=== PATIENT | female | born 1970 | race Caucasian/White ===

== ENCOUNTER 2017-01-29 07:57 | Day surgery (SDC) | payer OTHER ==
[~2017-01-29] VITALS: Ht 167.6 cm; Wt 102.1 kg
[~2017-01-29 07:57] MED LIST: BEYAZ 28 TABLE1 EACH; CLONAZEPAM1 MG PO; MOTRIN800 MG PO; NORCO 7.5/321 TABLET PO; PERCOCET 5/31 TABLET PO; REQUIP1 MG PO; ROSERUM PO; ULTRAM50 MG PO
[2017-01-29 08:29] VITALS: BP 118/62
[2017-01-29 11:30] VITALS: BP 140/78
[2017-01-29 12:15] VITALS: BP 125/65
== END 2017-01-29 12:25 | disposition home or self-care (01) ==
LOC: SDC 07:57
PROC: 0U5B8ZZ Destruction of Endometrium, Via Natural or Artificial Opening Endoscopic (ICD-10-PCS; principal; 2017-01-29)
DX: N92.0 Excessive and frequent menstruation with regular cycle (principal); E66.9 Obesity, unspecified; Z68.37 Body mass index [BMI] 37.0-37.9, adult; Z87.891 Personal history of nicotine dependence
CPT/HCPCS: J1100; J1170; J1885; J2250; J2405; J2765; J3010

== ENCOUNTER 2017-06-14 10:21 | Emergency (ER) | payer OTHER ==
[~2017-06-14] VITALS: Ht 167.6 cm; Wt 103.7 kg
[2017-06-14 11:04] VITALS: BP 138/73
[2017-06-14 13:45] LABS: HEMATOCRIT 39.2 % (36.0-46.0); MCH 28.2 PG (29.0-34.0); MCHC 32.1 G/DL (30.0-36.0); MCV 87.7 FL (83-99); MEAN PLAT.VOLUME 9.5 uM^3 (9.5-12.4); PLATELET COUNT 233 K/uL (156-360); RBC DIS.WIDTH-CV 13.6 % (11.8-14.6); RBC DIS.WIDTH-SD 43.8 % (39-53); RED BLOOD COUNT 4.47 M/uL (3.80-5.20); WHITE BLOOD COUNT 8.4 K/uL (4.1-10.2)
[2017-06-14 13:55] LABS: CHLORIDE 106 mEq/L (99-109); POTASSIUM 3.9 mEq/L (3.7-5.4); SODIUM 138 mEq/L (136-147)
[2017-06-14 13:56] LABS: GLUCOSE 114 mg/dL (70-99)
[2017-06-14 13:58] LABS: ANION GAP 10 MEQ/L (2-14)
[2017-06-14 14:00] LABS: GFR ESTIMATE (CALCULATED) > 59 mL/min/
[2017-06-14] MEDS ORDERED: LEVAQUIN750 MG PO (14:00)
[2017-06-14] MEDS ORDERED: VENTOLIN HFA18 GM IH (14:00)
[2017-06-14] MEDS ORDERED: HYCODAN SYRUP480 ML PO (14:00)
[2017-06-14 14:01] LABS: UREA NITROGEN (BUN) 10 mg/dL (9-23)
== END 2017-06-14 14:21 | disposition home or self-care (01) ==
LOC: EME 10:21 → EXP 10:21
PROVIDERS: Nurse Practitioner Family
DX: J18.9 Pneumonia, unspecified organism (principal); Z87.891 Personal history of nicotine dependence; Z88.0 Allergy status to penicillin
CPT/HCPCS: 80048; 85027; 94640; 99281; 99284

== ENCOUNTER 2017-07-11 10:23 | Inpatient (IN) | payer OTHER ==
[~2017-07-11] VITALS: Ht 167.6 cm; Wt 110.0 kg
[~2017-07-11 10:23] MED LIST changes: +HYCODAN SYRUP480 ML PO; +LEVAQUIN750 MG PO; +VENTOLIN HFA18 GM IH
[2017-07-11 12:35] LABS: BASOPHIL COUNT 0.1 K/uL (0-0.1); EOSINOPHIL (%) 0.1 % (0-5); HEMATOCRIT 37.8 % (36.0-46.0); IMMATURE GRANULOCYTE (%) 0.6 % (0.0-0.7); IMMATURE GRANULOCYTE COUNT 0.1 K/uL; INSTRUMENT ABS NEUTROPHIL CT 11.5 K/uL; LYMPHOCYTE COUNT 1.6 K/uL (1.0-2.8); MCH 28.3 PG (29.0-34.0); MCHC 32.3 G/DL (30.0-36.0); MCV 87.7 FL (83-99); MEAN PLAT.VOLUME 9.6 uM^3 (9.5-12.4); MONOCYTE (%) 6.6 % (3-12); MONOCYTE COUNT 0.9 K/uL (0-0.8); NEUTROPHIL (%) 81.1 % (45-76); NEUTROPHIL COUNT 11.5 K/uL (1.8-6.4); RBC DIS.WIDTH-CV 13.2 % (11.8-14.6); RBC DIS.WIDTH-SD 42.6 % (39-53); RED BLOOD COUNT 4.31 M/uL (3.80-5.20); WHITE BLOOD COUNT 14.1 K/uL (4.1-10.2)
[2017-07-11 12:37] LABS: PROTHROMBIN TIME 10.6 SEC (10.2-12.9)
[2017-07-11 12:38] LABS: PLATELET COUNT 335 K/uL (156-360)
[2017-07-11 12:39] LABS: CHLORIDE 106 mEq/L (99-109); POTASSIUM 3.4 mEq/L (3.7-5.4); SODIUM 140 mEq/L (136-147)
[2017-07-11 12:41] LABS: GLUCOSE 106 mg/dL (70-99)
[2017-07-11 12:43] LABS: ANION GAP 11 MEQ/L (2-14)
[2017-07-11 12:45] LABS: GFR ESTIMATE (CALCULATED) > 59 mL/min/
[2017-07-11 12:46] LABS: UREA NITROGEN (BUN) 13 mg/dL (9-23)
[2017-07-11] MEDS ORDERED: PRILOSEC20 MG PO (13:44)
[2017-07-11] MEDS ORDERED: REQUIP1 MG PO (13:44)
[2017-07-11 22:54] VITALS: BP 139/67
[2017-07-12 03:54] VITALS: BP 114/56
[2017-07-12 08:05] VITALS: BP 119/51
[2017-07-12 11:17] VITALS: BP 108/51
[2017-07-12 16:20] VITALS: BP 116/63
[2017-07-12 19:39] VITALS: BP 105/58
[2017-07-12 23:54] VITALS: BP 125/60
[2017-07-13 05:29] VITALS: BP 121/68
[2017-07-13 08:03] VITALS: BP 117/59
[2017-07-13 16:02] VITALS: BP 118/60
[2017-07-13 20:26] VITALS: BP 122/59
[2017-07-13 23:42] VITALS: BP 108/55
[2017-07-14 03:40] VITALS: BP 111/59
[2017-07-14 08:12] VITALS: BP 123/60
[2017-07-14 09:43] VITALS: BP 128/66
[2017-07-14] MEDS ORDERED: HYDROCODON-ACE1 EAC9 PO (09:51)
[2017-07-14] MEDS ORDERED: BENADRYL25 MG PO (09:51)
[2017-07-14] MEDS ORDERED: LOVENOX30 MG/0.3 SC (09:51)
[2017-07-14] MEDS ORDERED: HYDROCODON-ACE1 EAC7 PO (09:51)
[2017-07-14] MEDS ORDERED: DOCUSATE SODIU100 MG PO (09:51)
[2017-07-14] MEDS ORDERED: DILAUDID 00.5 MG/0.5 IV (09:51)
[2017-07-14] MEDS ORDERED: ONDANSETRON4 MG/2 ML IV (09:52)
[2017-07-14] MEDS ORDERED: CITROMA296 ML PO (09:52)
== END 2017-07-14 10:18 | DRG 482 ==
LOC: EME 10:23 → 3EAST 15:38 → EDOF 15:38 → ENRESERV 15:39 → 3EAST 22:51
PROVIDERS: Emergency Medicine
PROC: 0QSB04Z Reposition Right Lower Femur with Internal Fixation Device, Open Approach (ICD-10-PCS; principal; 2017-07-11)
DX: S72.451A Displaced supracondylar fracture without intracondylar extension of lower end of right femur, initial encounter for closed fracture (principal); M25.561 Pain in right knee; W01.0XXA Fall on same level from slipping, tripping and stumbling without subsequent striking against object, initial encounter; Z88.1 Allergy status to other antibiotic agents; Z79.899 Other long term (current) drug therapy; Y93.01 Activity, walking, marching and hiking; Y92.9 Unspecified place or not applicable; Y99.0 Civilian activity done for income or pay; E66.9 Obesity, unspecified; Z68.39 Body mass index [BMI] 39.0-39.9, adult
CPT/HCPCS: 71010; 73552; 73560; 76000; 80048; 85025; 85610; 93005; 99281; 99285; C1713; J0131; J0330; J0690; J1100; J1170; J1650; J1885; J2175; J2250; J2270; J2405; J2710; J3010; J7050; J7120

== ENCOUNTER 2017-07-14 09:40 | Inpatient (IN) | payer OTHER ==
[~2017-07-14] VITALS: Ht 167.6 cm; Wt 117.9 kg
[~2017-07-14 09:40] MED LIST changes: +PRILOSEC20 MG PO
[2017-07-14] MEDS ORDERED: DILAUDID 00.5 MG/0.5 IV (09:51)
[2017-07-14] MEDS ORDERED: LOVENOX30 MG/0.3 SC (09:51)
[2017-07-14] MEDS ORDERED: HYDROCODON-ACE1 EAC7 PO (09:51)
[2017-07-14] MEDS ORDERED: HYDROCODON-ACE1 EAC9 PO (09:51)
[2017-07-14] MEDS ORDERED: BENADRYL25 MG PO (09:51)
[2017-07-14] MEDS ORDERED: DOCUSATE SODIU100 MG PO (09:51)
[2017-07-14] MEDS ORDERED: ONDANSETRON4 MG/2 ML IV (09:52)
[2017-07-14] MEDS ORDERED: CITROMA296 ML PO (09:52)
[2017-07-14 10:43] VITALS: BP 109/56
[2017-07-14 15:16] VITALS: BP 116/55
[2017-07-15 04:29] VITALS: BP 137/59
[2017-07-15 05:53] LABS: ALKALINE PHOSPHATASE 39 IU/L (3-129); ANION GAP 7 MEQ/L (2-14); CHLORIDE 103 MEQ/L (99-109); GFR ESTIMATE (CALCULATED) > 59 mL/min/; GLUCOSE 96 mg/dL (70-99); SAMPLE HEMOLYSIS CHECK 0; SAMPLE ICTERIC CHECK 0; SAMPLE LIPEMIA CHECK 0; SODIUM 142 MEQ/L (136-147); UREA NITROGEN (BUN) 6 mg/dL (9-23)
[2017-07-15 08:14] LABS: HEMATOCRIT 24.7 % (36.0-46.0); MCH 29.2 PG (29.0-34.0); MCHC 32.4 G/DL (30.0-36.0); MCV 90.1 FL (83-99); MEAN PLAT.VOLUME 10.4 uM^3 (9.5-12.4); PLATELET COUNT 266 K/uL (156-360); RBC DIS.WIDTH-CV 13.5 % (11.8-14.6); RBC DIS.WIDTH-SD 44.5 % (39-53); RED BLOOD COUNT 2.74 M/uL (3.80-5.20); WHITE BLOOD COUNT 8.9 K/uL (4.1-10.2)
[2017-07-15 15:56] VITALS: BP 131/63
[2017-07-16 05:08] VITALS: BP 126/58
[2017-07-16 07:06] LABS: MCH 28.1 PG (29.0-34.0); MCHC 30.8 G/DL (30.0-36.0); MCV 91.2 FL (83-99); MEAN PLAT.VOLUME 9.4 uM^3 (9.5-12.4); NRBC (%) 0.3 /100 WBC (0-0); PLATELET COUNT 303 K/uL (156-360); RBC DIS.WIDTH-CV 13.4 % (11.8-14.6); RBC DIS.WIDTH-SD 44.1 % (39-53); RED BLOOD COUNT 2.85 M/uL (3.80-5.20); WHITE BLOOD COUNT 9.9 K/uL (4.1-10.2)
[2017-07-16 15:58] VITALS: BP 111/58
[2017-07-17 05:39] VITALS: BP 108/58
[2017-07-17 06:47] LABS: HEMATOCRIT 24.4 % (36.0-46.0); MCH 28.4 PG (29.0-34.0); MCHC 31.1 G/DL (30.0-36.0); MEAN PLAT.VOLUME 9.8 uM^3 (9.5-12.4); NRBC (%) 0.3 /100 WBC (0-0); PLATELET COUNT 308 K/uL (156-360); RBC DIS.WIDTH-CV 13.6 % (11.8-14.6); RBC DIS.WIDTH-SD 45.3 % (39-53); RED BLOOD COUNT 2.68 M/uL (3.80-5.20); WHITE BLOOD COUNT 9.2 K/uL (4.1-10.2)
[2017-07-17 15:00] VITALS: BP 117/56
[2017-07-18 05:14] VITALS: BP 102/55
[2017-07-18 06:25] LABS: MCHC 30.8 G/DL (30.0-36.0); MCV 90.9 FL (83-99); MEAN PLAT.VOLUME 9.5 uM^3 (9.5-12.4); NRBC (%) 0.5 /100 WBC (0-0); PLATELET COUNT 370 K/uL (156-360); RBC DIS.WIDTH-CV 13.7 % (11.8-14.6); RBC DIS.WIDTH-SD 45.1 % (39-53); RED BLOOD COUNT 2.86 M/uL (3.80-5.20); WHITE BLOOD COUNT 10.1 K/uL (4.1-10.2)
[2017-07-18 15:10] VITALS: BP 120/58
[2017-07-19 05:00] VITALS: BP 117/56
[2017-07-19 15:54] VITALS: BP 112/56
[2017-07-20 04:54] VITALS: BP 117/56
[2017-07-20 05:47] LABS: HEMATOCRIT 24.3 % (36.0-46.0); MCH 27.8 PG (29.0-34.0); MCHC 30.5 G/DL (30.0-36.0); MCV 91.4 FL (83-99); MEAN PLAT.VOLUME 9.4 uM^3 (9.5-12.4); NRBC (%) 0.5 /100 WBC (0-0); PLATELET COUNT 347 K/uL (156-360); RBC DIS.WIDTH-CV 14.4 % (11.8-14.6); RED BLOOD COUNT 2.66 M/uL (3.80-5.20); WHITE BLOOD COUNT 8.1 K/uL (4.1-10.2)
[2017-07-20 11:46] LABS: ABSOLUTE RETICULOCYTE CT. 0.2 M/uL (0.02-0.08); IMM.RETIC FRACTION 35.3 % (3-19); RETICULOCYTE COUNT 6.9 % (0.5-1.8)
[2017-07-20 12:04] LABS: IRON 103 MCG/DL (35-150)
[2017-07-20 12:45] LABS: FERRITIN 56 NG/ML (10-291)
[2017-07-20 16:00] VITALS: BP 112/77
[2017-07-20 17:46] LABS: HEMATOCRIT 27.8 % (36.0-46.0); MCH 28.1 PG (29.0-34.0); MCHC 30.6 G/DL (30.0-36.0); MCV 92.1 FL (83-99); MEAN PLAT.VOLUME 8.9 uM^3 (9.5-12.4); NRBC (%) 0.5 /100 WBC (0-0); PLATELET COUNT 389 K/uL (156-360); RBC DIS.WIDTH-CV 14.6 % (11.8-14.6); RBC DIS.WIDTH-SD 46.8 % (39-53); RED BLOOD COUNT 3.02 M/uL (3.80-5.20); WHITE BLOOD COUNT 10.8 K/uL (4.1-10.2)
[2017-07-21 05:49] VITALS: BP 131/64
[2017-07-21 15:28] VITALS: BP 134/59
[2017-07-22 05:34] VITALS: BP 109/54
[2017-07-22 06:35] LABS: HEMATOCRIT 26.7 % (36.0-46.0); MCHC 30.3 G/DL (30.0-36.0); MCV 92.4 FL (83-99); NRBC (%) 0.2 /100 WBC (0-0); PLATELET COUNT 363 K/uL (156-360); RBC DIS.WIDTH-CV 14.8 % (11.8-14.6); RBC DIS.WIDTH-SD 48.4 % (39-53); RED BLOOD COUNT 2.89 M/uL (3.80-5.20); WHITE BLOOD COUNT 8.6 K/uL (4.1-10.2)
[2017-07-22 15:05] VITALS: BP 105/50
[2017-07-23 05:08] VITALS: BP 109/53
[2017-07-23 15:05] VITALS: BP 109/52
[2017-07-24 05:57] LABS: MCH 28.9 PG (29.0-34.0); MCHC 31.1 G/DL (30.0-36.0); MCV 92.8 FL (83-99); MEAN PLAT.VOLUME 9.2 uM^3 (9.5-12.4); PLATELET COUNT 341 K/uL (156-360); RBC DIS.WIDTH-CV 14.9 % (11.8-14.6); RBC DIS.WIDTH-SD 49.3 % (39-53); RED BLOOD COUNT 2.91 M/uL (3.80-5.20); WHITE BLOOD COUNT 6.6 K/uL (4.1-10.2)
[2017-07-24 06:14] VITALS: BP 108/57
[2017-07-24 06:25] LABS: ANION GAP 5 MEQ/L (2-14); CHLORIDE 106 MEQ/L (99-109); GFR ESTIMATE (CALCULATED) > 59 mL/min/; GLUCOSE 97 mg/dL (70-99); POTASSIUM 4.6 MEQ/L (3.7-5.4); SAMPLE HEMOLYSIS CHECK 0; SAMPLE ICTERIC CHECK 0; SAMPLE LIPEMIA CHECK 0; SODIUM 140 MEQ/L (136-147); UREA NITROGEN (BUN) 9 mg/dL (9-23)
[2017-07-24] MEDS ORDERED: FOLIC ACID1 MG PO (12:40)
[2017-07-24] MEDS ORDERED: FERROUS SULFAT325 MG PO (12:40)
[2017-07-24] MEDS ORDERED: THERAGRAN1 TABLET PO (12:40)
[2017-07-24] MEDS ORDERED: ASCORBIC ACID500 M3 PO (12:40)
[2017-07-24] MEDS ORDERED: LOVENOX30 MG/0.3 SC (12:40)
[2017-07-24] MEDS ORDERED: OXYCODONE-APAP1 EACH PO (12:40)
[2017-07-24] MEDS ORDERED: DOCUSATE SODIU100 MG PO (12:40)
[2017-07-24] MEDS ORDERED: SENNA PLUS TAB1 EACH PO (12:40)
== END 2017-07-24 15:31 | disposition home health service (06) | DRG 534 ==
LOC: 3WEST 09:40 → ENPENDDIS 07-24 → 3WEST 07-24 15:31
PROVIDERS: Family Medicine; Physical Medicine & Rehabilitation Pain Medicine
DX: S72.401A Unspecified fracture of lower end of right femur, initial encounter for closed fracture (principal); E66.9 Obesity, unspecified; D62 Acute posthemorrhagic anemia; R53.1 Weakness; J84.10 Pulmonary fibrosis, unspecified; L29.9 Pruritus, unspecified; K59.00 Constipation, unspecified; W01.0XXA Fall on same level from slipping, tripping and stumbling without subsequent striking against object, initial encounter; G25.81 Restless legs syndrome; E87.6 Hypokalemia; J45.909 Unspecified asthma, uncomplicated; D72.829 Elevated white blood cell count, unspecified; E77.8 Other disorders of glycoprotein metabolism; G47.33 Obstructive sleep apnea (adult) (pediatric); H35.109 Retinopathy of prematurity, unspecified, unspecified eye; Z68.41 Body mass index [BMI] 40.0-44.9, adult; Z88.0 Allergy status to penicillin
CPT/HCPCS: 73552; 80048; 80053; 82607; 82728; 82746; 83540; 85027; 85045; 97110 GO; 97530 GP; 99202; J1650